=== PATIENT | male | born 2000 | race Hispanic/Latino ===

== ENCOUNTER 2024-09-22 15:39 | Emergency (ER) | payer OTHER ==
[2024-09-22] MEDS ORDERED: Amoxicillin/Potassium Clav 875 MG TAB ONE (16:18)
== END 2024-09-22 16:30 ==
LOC: MADERS 15:39
DX: K08.89 Other specified disorders of teeth and supporting structures (principal); K91.89 Other postprocedural complications and disorders of digestive system
CPT/HCPCS: 99283